=== PATIENT | male | born 1970 | race Caucasian/White ===

== ENCOUNTER 2022-05-05 07:40 | Observation (INO) | payer BC ==
[~2022-05-05] VITALS: Ht 180.3 cm; Wt 103.0 kg
[2022-05-05 08:30] LABS: HEMATOCRIT 40.8 % (39.0-50.0); HEMOGLOBIN 14.5 g/dl (14.0-18.0); IMMATURE GRANULOCYTES 0.3 % (0.0-5.0); MEAN CELL VOLUME 89.3 fL CALC (80.0-100.0); MEAN CORPUSCULAR HGB 31.7 pG CALC (26.0-32.0); MEAN CORPUSCULAR HGB CONC 35.5 g/dL CAL (32.0-36.0); NEUT# 6.75 thou/uL (1.82-7.42); RED BLOOD COUNT 4.57 mill/uL (4.70-6.10); RED CELL DISTRI WIDTH 11.7 % (11.5-15.5)
[2022-05-05 08:35] LABS: ALBUMIN 4.7 g/dL (3.2-5.0); ALKALINE PHOSPHATASE 69 u/l (38-126); ANION GAP 15 (6-22 (CALC)); BILIRUBIN, TOTAL 0.6 mg/dL (0.0-1.4); BUN 23 mg/dL (9-20); BUN/CREATININE RATIO 28 (12-20 (CALC)); CARBON DIOXIDE 26 mmol/l (22-30); CHLORIDE 103 mmol/l (95-108); CREATININE 0.8 mg/dL (0.7-1.3); GFR FOR AFR.AMER. > 60 ML/MIN (>=60 (CALC)); GFR OTHER RACES > 60 ML/MIN (>=60 (CALC)); POTASSIUM 3.6 mmol/l (3.5-5.1); SGOT/AST 24 u/l (17-59); SODIUM 140 mmol/l (137-146); TOTAL PROTEIN 7.5 g/dL (6.3-8.2)
[2022-05-05] MEDS ORDERED: HYDROCHLOROT25 MG PO (11:09)
[2022-05-05] MEDS ORDERED: NORVASC5 M1 PO (11:10)
[2022-05-05] MEDS ORDERED: INDERAL 40MG TA40 MG PO (11:11)
[2022-05-05] MEDS ORDERED: JANUVIA50 MG PO (11:11)
[2022-05-05] MEDS ORDERED: LOSARTAN POTASS50 MG PO (11:11)
[2022-05-05] MEDS ORDERED: METFORMIN HCL1000 MG PO (11:12)
[2022-05-05] MEDS ORDERED: PROTONIX40 M2 PO (11:12)
[2022-05-05] MEDS ORDERED: ASPIRIN81 MG PO (11:13)
[2022-05-05] MEDS ORDERED: INDERAL 20MG TA20 MG PO (12:33)
[2022-05-05 12:47] VITALS: BP 131/78
[2022-05-05 15:39] VITALS: BP 134/67
[2022-05-05 18:59] VITALS: BP 124/69
[2022-05-05 20:00] VITALS: BP 126/70
[2022-05-06 04:06] VITALS: BP 133/74
[2022-05-06 06:17] VITALS: BP 133/76
[2022-05-06 19:14] VITALS: BP 112/53
[2022-05-06 21:42] VITALS: BP 149/72
[2022-05-07 04:19] VITALS: BP 115/54
[2022-05-07 06:40] VITALS: BP 126/56
[2022-05-07 08:25] VITALS: BP 147/81
[2022-05-07 08:29] VITALS: BP 137/83
[2022-05-07 14:31] VITALS: BP 133/76
[2022-05-07] MEDS ORDERED: LORTAB5 PO (18:01)
== END 2022-05-07 19:00 | disposition home or self-care (01) | DRG 552 ==
LOC: ED 07:40 → ED-I 10:25 → ED 10:47 → MS2 10:48
PROVIDERS: Emergency Medicine; ADMIT Internal Medicine; ATTEND Internal Medicine
DX: M51.16 Intervertebral disc disorders with radiculopathy, lumbar region (principal); I10 Essential (primary) hypertension; E11.9 Type 2 diabetes mellitus without complications; F17.290 Nicotine dependence, other tobacco product, uncomplicated; Z79.84 Long term (current) use of oral hypoglycemic drugs
CPT/HCPCS: G0378; J1650

== ENCOUNTER 2022-10-24 10:32 | Emergency (ER) | payer OTHER ==
[2022-10-24] VITALS (14 sets, daily range): BP systolic 113–150; BP diastolic 61–83
[~2022-10-24] VITALS: Ht 180.3 cm; Wt 99.0 kg
[~2022-10-24 10:32] MED LIST: ASPIRIN81 MG PO; HYDROCHLOROT25 MG PO; INDERAL 20MG TA20 MG PO; INDERAL 40MG TA40 MG PO; JANUVIA50 MG PO; LORTAB5 PO; LOSARTAN POTASS50 MG PO; METFORMIN HCL1000 MG PO; NORVASC5 M1 PO; PROTONIX40 M2 PO
[2022-10-24 13:01] LABS: BASO% 0.2 % (0-3); EOS% 1.3 % (0-8); HEMATOCRIT 41.6 % (39.0-50.0); HEMOGLOBIN 14.9 g/dl (14.0-18.0); IMMATURE GRANULOCYTES 0.4 % (0.0-5.0); LYMPH% 16.2 % (15-41); MEAN CELL VOLUME 87.2 fL CALC (80.0-100.0); MEAN CORPUSCULAR HGB 31.2 pG CALC (26.0-32.0); MEAN CORPUSCULAR HGB CONC 35.8 g/dL CAL (32.0-36.0); MONO% 6.9 % (2-13); NEUT# 12.65 thou/uL (1.82-7.42); RED BLOOD COUNT 4.77 mill/uL (4.70-6.10); RED CELL DISTRI WIDTH 11.4 % (11.5-15.5)
[2022-10-24 13:15] LABS: ALBUMIN 4.9 g/dL (3.2-5.0); ALKALINE PHOSPHATASE 61 u/l (38-126); ANION GAP 17 (6-22 (CALC)); BILIRUBIN, TOTAL 0.6 mg/dL (0.2-1.3); BUN 25 mg/dL (9-20); BUN/CREATININE RATIO 24 (12-20 (CALC)); CARBON DIOXIDE 26 mmol/l (22-30); CHLORIDE 100 mmol/l (95-108); GFR FOR AFR.AMER. > 60 ML/MIN (>=60 (CALC)); GFR OTHER RACES > 60 ML/MIN (>=60 (CALC)); POTASSIUM 3.9 mmol/l (3.5-5.1); SGOT/AST 24 u/l (17-59); SODIUM 138 mmol/l (137-146); TOTAL PROTEIN 7.9 g/dL (6.3-8.2)
== END 2022-10-24 14:30 | disposition home or self-care (01) | DRG 313 ==
LOC: ED 10:32
PROVIDERS: Family Medicine
DX: R07.89 Other chest pain (principal); I10 Essential (primary) hypertension; E11.9 Type 2 diabetes mellitus without complications; F17.200 Nicotine dependence, unspecified, uncomplicated; Z79.84 Long term (current) use of oral hypoglycemic drugs
CPT/HCPCS: Q9967